=== PATIENT | female | born 1980 | race American Indian/Alaskan Native ===

== ENCOUNTER 2017-07-01 17:39 | Emergency (ER) | payer MEDICAID ==
[2017-07-01] MEDS ORDERED: Potassium Chloride 20 MEQ in Premix Bag 1 BAG IV ONE (19:01)
[2017-07-01] MEDS ORDERED: Lidocaine 1% 20 ML MDV INJECT ONE (19:21)
[2017-07-01] MEDS ORDERED: Aspirin 81 MG Tab.Chew PO ONE (19:24)
[2017-07-01] MEDS ORDERED: Nitroglycerin 0.4 MG Tab.SL SL ONE (19:24)
--- NOTE | 2017-07-01 19:24 | EDM.PDOC ---
<Almaz Kaiser - Last Filed: 07/01/17 19:18> ED HPI GENERAL MEDICAL PROBLEM - General Chief Complaint: Chest Pain Stated Complaint: CHEST TIGHTNESS,DIZZY Time Seen by Provider: 07/01/17 19:19 Source of Information: Reports: Patient History Limitations: Reports: No Limitations - History of Present Illness INITIAL COMMENTS - FREE TEXT/NARRATIVE: pt arrived with a tachy rhythm and having chest tightness, She had pressure in hr chest. Onset: Today Duration: Hour(s):, Other ( chest tightness. ) Location: Reports: Chest Associated Symptoms: Reports: Chest Pain, Fever/Chills, Loss of Appetite, Shortness of Breath Left Chest Pain Score (Numeric/FACES): 5 - Related Data Allergies Allergy/AdvReac Type Severity Reaction Status Date / Time lisinopril Allergy Chest Verified 07/01/17 17:55 Tightness Home Meds: Home Meds Albuterol [Proair HFA] 2 puff IH Q6HR 07/07/15 [History] Atenolol [Atenolol] 50 mg PO DAILY 07/07/15 [History] Dulaglutide [Trulicity] 0.75 mg SQ .WEEKLY 07/07/15 [History] metFORMIN HCl [Metformin HCl] 1,000 mg PO BID 07/07/15 [History] Cephalexin [Keflex] 500 mg PO QID 07/26/15 [History] Potassium Chloride 40 meq PO DAILY #14 tablet.er 07/01/17 [Rx] Past Medical History Cardiovascular History: Reports: High Cholesterol, Hypertension Respiratory History: Reports: Asthma, Pneumonia, Recurrent Musculoskeletal History: Reports: Back Pain, Chronic, Fracture Psychiatric History: Reports: Panic Attack Other Psychiatric History: history of Endocrine/Metabolic History: Reports: Diabetes, Type II, Obesity/BMI 30+ Dermatologic History: Reports: Other (See Below) Other Dermatologic History: dry skin patches - Infectious Disease History Infectious Disease History: Reports: Chicken Pox - Past Surgical History GI Surgical History: Reports: Appendectomy Social & Family History - Family History Cardiac: Reports: Bypass, CAD, Hypertension Endocrine/Metabolic: Reports: Diabetes, type II Dermatologic: Reports: Eczema - Tobacco Use Smoking Status *Q: Unknown Ever Smoked Years of Tobacco use: 22 Packs/Tins Daily: 1 Used Tobacco, but Quit: Yes Month Tobacco Last Used: Second Hand Smoke Exposure: No - Alcohol Use Days Per Week of Alcohol Use: 0 - Recreational Drug Use Recreational Drug Use: No ED ROS GENERAL - Review of Systems Review Of Systems: See Below Constitutional: Reports: Fever, Other ( chest tightness) HEENT: Reports: No Symptoms Respiratory: Reports: No Symptoms, Shortness of Breath Cardiovascular: Reports: Chest Pain, Other ( chest tightness) Endocrine: Reports: No Symptoms GI/Abdominal: Reports: No Symptoms : Reports: No Symptoms Musculoskeletal: Reports: No Symptoms Skin: Reports: No Symptoms Neurological: Reports: No Symptoms Psychiatric: Reports: Anxiety ED EXAM, GENERAL - Physical Exam Exam: See Below Free Text/Narrative:: pt arrived with chest tightness. She did feel sob. She did have a temp od 99. She had a tachycardia and it was noted that she had a rt bundle branch block. Exam Limited By: No Limitations General Appearance: Alert, Mild Distress, Other (pupils equal and reactive. ) Ears: Normal TMs Nose: Normal Inspection Throat/Mouth: Normal Inspection Head: Atraumatic Neck: Normal Inspection Respiratory/Chest: No Respiratory Distress Cardiovascular: Regular Rate, Rhythm, Tachycardia GI/Abdominal: Soft, Non-Tender (Female) Exam: Normal External Exam Rectal (Female) Exam: Deferred Back Exam: Normal Inspection Extremities: Normal Inspection Neurological: Alert, Oriented, Normal Cognition Course - Vital Signs Last Recorded V/S: Last Vital Signs Temp 37.5 C 07/01/17 17:48 Pulse 106 H 07/01/17 22:30 Resp 16 07/01/17 22:30 BP 161/103 H 07/01/17 22:30 Pulse Ox 94 L 07/01/17 22:30 - Orders/Labs/Meds Orders: Active Orders 24 hr Category Date Time Status EKG Documentation Completion [RC] ASDIRECTED Care 07/01/17 17:54 Active Chest 1V Frontal [CR] Stat Exams 07/01/17 17:55 Taken EKG 12 Lead [EK] Routine Ther 07/01/17 17:54 Ordered Labs: Laboratory Tests 07/01/17 07/01/17 07/01/17 Range/Units 18:08 18:08 18:08 WBC 15.1 H (4.5-11.0) K/uL RBC 5.43 (3.30-5.50) M/uL Hgb 14.8 (12.0-15.0) g/dL Hct 44.7 (36.0-48.0) % MCV 82 (80-98) fL MCH 27 (27-31) pg MCHC 33 (32-36) % Plt Count 553 H (150-400) K/uL Neut % (Auto) 61 (36-66) % Lymph % (Auto) 28 (24-44) % [place] % (Auto) 9 H (2-6) % Eos % (Auto) 2 (2-4) % Baso % (Auto) 0 (0-1) % D-Dimer, Quantitative (0.0-400.0) ng/mL Sodium 134 L (140-148) mmol/L Potassium 3.1 L (3.6-5.2) mmol/L Chloride 97 L (100-108) mmol/L Carbon Dioxide 26 (21-32) mmol/L Anion Gap 14.1 H (5.0-14.0) mmol/L BUN 15 (7-18) mg/dL Creatinine 0.7 (0.6-1.0) mg/dL Est Cr Clr Drug Dosing 93.68 mL/min Estimated GFR (MDRD) > 60 (>60) Glucose 192 H (74-106) mg/dL Calcium 9.6 (8.5-10.1) mg/dL Total Bilirubin 0.3 (0.2-1.0) mg/dL AST 19 (15-37) U/L ALT 32 (12-78) U/L Alkaline Phosphatase 92 (46-116) U/L Troponin I < 0.017 (0.000-0.056) ng/mL Total Protein 7.8 (6.4-8.2) g/dL Albumin 3.9 (3.4-5.0) g/dL Globulin 3.9 H (2.3-3.5) g/dL Albumin/Globulin Ratio 1.0 L (1.2-2.2) TSH, Ultra Sensitive (0.358-3.740) uIU/mL Urine Color Urine Appearance Urine pH (4.5-8.0) Ur Specific [place] (1.008-1.030) Urine Protein (NEGATIVE) mg/dL Urine Glucose (UA) (NEGATIVE) mg/dL Urine Ketones (NEGATIVE) mg/dL Urine Occult Blood (NEGATIVE) Urine Nitrite (NEGATIVE) Urine Bilirubin (NEGATIVE) Urine Urobilinogen (NORMAL) mg/dL Ur Leukocyte Esterase (NEGATIVE) Urine RBC (0-5) Urine WBC (0-5) Ur Epithelial Cells Amorphous Sediment Urine Bacteria Urine Mucus Urine HCG, Qual Urine Opiates Screen (NEGATIVE) Ur Oxycodone Screen (NEGATIVE) Urine Methadone Screen (NEGATIVE) Ur Propoxyphene Screen (NEGATIVE) Ur Barbiturates Screen (NEGATIVE) Ur Tricyclics Screen (NEGATIVE) Ur Phencyclidine Scrn (NEGATIVE) Ur Amphetamine Screen (NEGATIVE) U Methamphetamines Scrn (NEGATIVE) Urine MDMA Screen (NEGATIVE) U Benzodiazepines Scrn (NEGATIVE) U Cocaine Metab Screen (NEGATIVE) U Marijuana (THC) Screen (NEGATIVE) 07/01/17 07/01/17 07/01/17 Range/Units 18:08 18:08 19:02 WBC (4.5-11.0) K/uL RBC (3.30-5.50) M/uL Hgb (12.0-15.0) g/dL Hct (36.0-48.0) % MCV (80-98) fL MCH (27-31) pg MCHC (32-36) % Plt Count (150-400) K/uL Neut % (Auto) (36-66) % Lymph % (Auto) (24-44) % [place] % (Auto) (2-6) % Eos % (Auto) (2-4) % Baso % (Auto) (0-1) % D-Dimer, Quantitative 184 (0.0-400.0) ng/mL Sodium (140-148) mmol/L Potassium (3.6-5.2) mmol/L Chloride (100-108) mmol/L Carbon Dioxide (21-32) mmol/L Anion Gap (5.0-14.0) mmol/L BUN (7-18) mg/dL Creatinine (0.6-1.0) mg/dL Est Cr Clr Drug Dosing mL/min Estimated GFR (MDRD) (>60) Glucose (74-106) mg/dL Calcium (8.5-10.1) mg/dL Total Bilirubin (0.2-1.0) mg/dL AST (15-37) U/L ALT (12-78) U/L Alkaline Phosphatase (46-116) U/L Troponin I (0.000-0.056) ng/mL Total Protein (6.4-8.2) g/dL Albumin (3.4-5.0) g/dL Globulin (2.3-3.5) g/dL Albumin/Globulin Ratio (1.2-2.2) TSH, Ultra Sensitive 0.667 (0.358-3.740) uIU/mL Urine Color Urine Appearance Urine pH (4.5-8.0) Ur Specific [place] (1.008-1.030) Urine Protein (NEGATIVE) mg/dL Urine Glucose (UA) (NEGATIVE) mg/dL Urine Ketones (NEGATIVE) mg/dL Urine Occult Blood (NEGATIVE) Urine Nitrite (NEGATIVE) Urine Bilirubin (NEGATIVE) Urine Urobilinogen (NORMAL) mg/dL Ur Leukocyte Esterase (NEGATIVE) Urine RBC (0-5) Urine WBC (0-5) Ur Epithelial Cells Amorphous Sediment Urine Bacteria Urine Mucus Urine HCG, Qual Negative Urine Opiates Screen (NEGATIVE) Ur Oxycodone Screen (NEGATIVE) Urine Methadone Screen (NEGATIVE) Ur Propoxyphene Screen (NEGATIVE) Ur Barbiturates Screen (NEGATIVE) Ur Tricyclics Screen (NEGATIVE) Ur Phencyclidine Scrn (NEGATIVE) Ur Amphetamine Screen (NEGATIVE) U Methamphetamines Scrn (NEGATIVE) Urine MDMA Screen (NEGATIVE) U Benzodiazepines Scrn (NEGATIVE) U Cocaine Metab Screen (NEGATIVE) U Marijuana (THC) Screen (NEGATIVE) 07/01/17 07/01/17 Range/Units 19:28 19:31 WBC (4.5-11.0) K/uL RBC (3.30-5.50) M/uL Hgb (12.0-15.0) g/dL Hct (36.0-48.0) % MCV (80-98) fL MCH (27-31) pg MCHC (32-36) % Plt Count (150-400) K/uL Neut % (Auto) (36-66) % Lymph % (Auto) (24-44) % [place] % (Auto) (2-6) % Eos % (Auto) (2-4) % Baso % (Auto) (0-1) % D-Dimer, Quantitative (0.0-400.0) ng/mL Sodium (140-148) mmol/L Potassium (3.6-5.2) mmol/L Chloride (100-108) mmol/L Carbon Dioxide (21-32) mmol/L Anion Gap (5.0-14.0) mmol/L BUN (7-18) mg/dL Creatinine (0.6-1.0) mg/dL Est Cr Clr Drug Dosing mL/min Estimated GFR (MDRD) (>60) Glucose (74-106) mg/dL Calcium (8.5-10.1) mg/dL Total Bilirubin (0.2-1.0) mg/dL AST (15-37) U/L ALT (12-78) U/L Alkaline Phosphatase (46-116) U/L Troponin I (0.000-0.056) ng/mL Total Protein (6.4-8.2) g/dL Albumin (3.4-5.0) g/dL Globulin (2.3-3.5) g/dL Albumin/Globulin Ratio (1.2-2.2) TSH, Ultra Sensitive (0.358-3.740) uIU/mL Urine Color Yellow Urine Appearance Slightly cloudy Urine pH 5.0 (4.5-8.0) Ur Specific [place] 1.020 (1.008-1.030) Urine Protein 30 H (NEGATIVE) mg/dL Urine Glucose (UA) 1000 H (NEGATIVE) mg/dL Urine Ketones 50 H (NEGATIVE) mg/dL Urine Occult Blood Negative (NEGATIVE) Urine Nitrite Negative (NEGATIVE) Urine Bilirubin Negative (NEGATIVE) Urine Urobilinogen Normal (NORMAL) mg/dL Ur Leukocyte Esterase Negative (NEGATIVE) Urine RBC 0-5 (0-5) Urine WBC 0-5 (0-5) Ur Epithelial Cells Rare Amorphous Sediment Not seen Urine Bacteria Not seen Urine Mucus Not seen Urine HCG, Qual Urine Opiates Screen Negative (NEGATIVE) Ur Oxycodone Screen Negative (NEGATIVE) Urine Methadone Screen Negative (NEGATIVE) Ur Propoxyphene Screen Negative (NEGATIVE) Ur Barbiturates Screen Negative (NEGATIVE) Ur Tricyclics Screen Negative (NEGATIVE) Ur Phencyclidine Scrn Negative (NEGATIVE) Ur Amphetamine Screen Negative (NEGATIVE) U Methamphetamines Scrn Negative (NEGATIVE) Urine MDMA Screen Negative (NEGATIVE) U Benzodiazepines Scrn Negative (NEGATIVE) U Cocaine Metab Screen Negative (NEGATIVE) U Marijuana (THC) Screen Negative (NEGATIVE) Meds: Medications Discontinued Medications Generic Name Dose Route Start Last Admin Trade Name Freq PRN Reason Stop Dose Admin Aspirin 324 mg 07/01/17 19:24 07/01/17 19:44 Aspirin PO 07/01/17 19:25 324 mg ONETIME ONE Administration Potassium Chloride 20 meq/ 100 mls @ 50 mls/hr 07/01/17 19:01 07/01/17 19:38 Premix IV 07/01/17 21:00 50 mls/hr ONETIME ONE Administration Lidocaine HCl 20 ml 07/01/17 19:21 07/01/17 19:39 Xylocaine 1% INJECT 07/01/17 19:22 2 ml ONETIME ONE Administration Nitroglycerin 0.4 mg 07/01/17 19:24 07/01/17 19:45 Nitrostat SL 07/01/17 19:25 0.4 mg ONETIME ONE Administration - Re-Assessments/Exams Free Text/Narrative Re-Assessment/Exam: 07/01/17 19:27 ekg showed a ekg with a rt bundle branch block . we have no ekgs, Her trop is neg. Departure - Departure Disposition: Home, Self-Care 01 Clinical Impression: Atypical chest pain, Hypokalemia, Malaise, Right bundle branch block (RBBB) Prescriptions: Potassium Chloride 40 meq PO DAILY #14 tablet.er Instructions: Hypokalemia, Nonspecific Chest Pain Referrals: PCP,None [Primary Care Provider] - Forms: ED Department Discharge Additional Instructions: Low potassium could be caused by your diuretic, hydrochlorothiazide and this may need to be discontinued. Low potassium can cause tiredness fatigue weakness and dizziness. you will be given a potassium supplementation until you see your physician in the office. Have your blood pressure and her potassium rechecked within a week. In addition because of the chest pressure, and the newly diagnosed right bundle branch block, discuss with your doctor about whether or not to proceed with stress testing. <Brandan Ramos - Last Filed: 07/02/17 01:42> Course - Re-Assessments/Exams Free Text/Narrative Re-Assessment/Exam: 07/01/17 22:01 21.38 Transferred to my care from Dr. Kaiser 36-year-old female who's had fatigue for 3 days, feeling lightheaded and out of sorts for 2 days which she describes as dizziness, and chest pressure since 7 AM this morning. No cough or fever Has not missed any work but did have today off. She has type 2 diabetes with her last A1c in the 8% range and hypertension, recently started on hydrochlorothiazide and losartan no longer on atenolol Blood pressure is elevated a bit tonight. Investigations here included normal chest x-ray by my interpretation EKG showing right bundle branch block, no old EKG for comparison Elevated white count 15.1 elevated platelets 553 normal hemoglobin sodium 134 potassium 3.1 glucose 192 anion gap just a touch above normal at 14.1 Negative influenza test but no symptoms of this Normal renal function. Troponin negative D-dimer negative Significant risk factors for heart disease include her diabetes her history of smoking but stopped a year ago and early heart disease in her family, her father having had triple bypass in his 50s. She did get some relief with nitroglycerin. However she states she still has pressure. However is not distressed and vital signs are within normal apart from the mild elevation of blood pressure. 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
[2017-07-01 22:41] VITALS: BP 161/103
--- NOTE | 2017-07-02 09:28 | CR ---
Chest 1V Frontal FINDINGS: The heart and vascular structures are normal in appearance. No infiltrates or effusions are demonstrated. The skeletal structures are unremarkable. IMPRESSION: Negative exam.
== END 2017-07-01 22:44 | disposition home or self-care (01) ==
LOC: JP.ED 17:39
DX: I45.10 Unspecified right bundle-branch block (principal); E87.6 Hypokalemia; E78.00 Pure hypercholesterolemia, unspecified; I10 Essential (primary) hypertension; E11.9 Type 2 diabetes mellitus without complications; R53.81 Other malaise; Z88.8 Allergy status to other drugs, medicaments and biological substances; Z79.899 Other long term (current) drug therapy
CPT/HCPCS: 36415; 71045; 80053; 80305; 81001; 81025; 84443; 84484; 85025; 85379; 87804; 93005; 96360; 96361; 99285; A9270; J3480

== ENCOUNTER 2018-10-05 15:21 | Emergency (ER) | payer MEDICAID ==
[2018-10-05 16:02] VITALS: BP 146/99
--- NOTE | 2018-10-05 16:28 | EDM.PDOC ---
ED HPI GENERAL MEDICAL PROBLEM - General Chief Complaint: ENT Problem Stated Complaint: RT EAR PAIN Time Seen by Provider: 10/05/18 16:02 Source of Information: Reports: Patient History Limitations: Reports: No Limitations - History of Present Illness INITIAL COMMENTS - FREE TEXT/NARRATIVE: 37 yo female presents with continued right ear pain. She started cortisporine 3 days ago and continues to have worsening pain in her right ear. She is also on doxycycline and Flagyl for h. pylori infection. - Related Data Allergies Allergy/AdvReac Type Severity Reaction Status Date / Time lisinopril Allergy Chest Verified 10/05/18 16:05 Tightness Home Meds: Home Meds metFORMIN HCl [Metformin HCl] 1,000 mg PO BID 07/07/15 [History] Canagliflozin [Invokana] 100 mg PO DAILY 07/09/17 [History] Losartan [Cozaar] 25 mg PO DAILY 07/09/17 [History] hydroCHLOROthiazide [Hydrochlorothiazide] 25 mg PO DAILY 07/09/17 [History] Dulaglutide [Trulicity] 1.5 mg SUBCUT ASDIRECTED 03/09/18 [History] Insulin Glargine,Hum.Rec.Anlog [Basaglar Kwikpen U-100] 30 units SUBCUT DAILY [History] Doxycycline Monohydrate 10/05/18 [History] Neomycin/Polymyxin B Sulf/HC [Uvownasi-Scolusvpv-Bm Ear Soln] 10/05/18 [History ] Omeprazole 10/05/18 [History] metroNIDAZOLE [Metronidazole] 10/05/18 [History] Past Medical History Cardiovascular History: Reports: High Cholesterol, Hypertension Respiratory History: Reports: Asthma, Pneumonia, Recurrent Musculoskeletal History: Reports: Back Pain, Chronic, Fracture Psychiatric History: Reports: Panic Attack Other Psychiatric History: history of Endocrine/Metabolic History: Reports: Diabetes, Type II, Obesity/BMI 30+ Dermatologic History: Reports: Other (See Below) Other Dermatologic History: dry skin patches - Infectious Disease History Infectious Disease History: Reports: Chicken Pox - Past Surgical History GI Surgical History: Reports: Appendectomy Social & Family History - Family History Cardiac: Reports: Bypass, CAD, Hypertension Endocrine/Metabolic: Reports: Diabetes, type II Dermatologic: Reports: Eczema - Tobacco Use Smoking Status *Q: Never Smoker - Caffeine Use Caffeine Use: Reports: Coffee, Soda ED ROS ENT - Review of Systems Review Of Systems: See Below Constitutional: Denies: Fever, Chills HEENT: Reports: Ear Pain. Denies: Rhinitis, Sinus Problem Respiratory: Denies: Shortness of Breath, Wheezing Cardiovascular: Denies: Chest Pain ED EXAM, ENT - Physical Exam Exam: See Below Exam Limited By: No Limitations General Appearance: Alert, WD/WN, No Apparent Distress Eye Exam: Bilateral Eye: PERRL Ears: Hearing Grossly Normal, Normal TMs, Canal Discharge, Canal Swelling Nose: Normal Inspection, Normal Mucousa, No Blood Mouth/Throat: Normal Inspection, Normal Gums, Normal Lips, Normal Oropharynx, Normal Teeth Head: Atraumatic, Normocephalic Neck: Normal Inspection, Supple, Non-Tender, Full Range of Motion. No: Lymphadenopathy (R), Lymphadenopathy (L) Respiratory/Chest: No Respiratory Distress, Lungs Clear, Normal Breath Sounds, No Accessory Muscle Use, Chest Non-Tender Cardiovascular: Regular Rate, Rhythm, No Murmur Course - Vital Signs Last Recorded V/S: Last Vital Signs Temp 36.3 C 10/05/18 16:10 Pulse 96 10/05/18 16:10 Resp 20 10/05/18 16:10 BP 146/99 H 10/05/18 16:10 Pulse Ox 99 10/05/18 16:10 Departure - Departure Time of Disposition: 16:25 Disposition: Home, Self-Care 01 Clinical Impression: Otitis externa Qualifiers: Otitis externa type: swimmer's ear Chronicity: acute Laterality: right Qualified Code(s): H60.331 - Swimmer's ear, right ear - Discharge Information *PRESCRIPTION DRUG MONITORING PROGRAM REVIEWED*: Not Applicable *COPY OF PRESCRIPTION DRUG MONITORING REPORT IN PATIENT JADE: Not Applicable Instructions: Otitis Externa, [id number] Referrals: PCP,None [Primary Care Provider] - Forms: ED Department Discharge Additional Instructions: ciprodex 4 drops into right ear twice daily for 7 days ice to ear for pain relief
== END 2018-10-05 16:32 | disposition home or self-care (01) ==
LOC: JP.ED 15:21
DX: H60.331 Swimmer's ear, right ear (principal); I10 Essential (primary) hypertension; E11.9 Type 2 diabetes mellitus without complications; E66.9 Obesity, unspecified; Z88.8 Allergy status to other drugs, medicaments and biological substances; Z79.899 Other long term (current) drug therapy; Z79.4 Long term (current) use of insulin; Z87.01 Personal history of pneumonia (recurrent); Z90.49 Acquired absence of other specified parts of digestive tract
CPT/HCPCS: 99282